=== PATIENT | male | born 1985 | race Caucasian/White ===

== ENCOUNTER 2021-06-02 01:18 | Emergency (ER) | payer SELFPAY ==
[2021-06-02 01:22] VITALS: BP 193/116; PULSE 61; RESP 19; TEMP 36.6; O2SAT 97; BMI 30.2
--- NOTE | 2021-06-02 01:43 | W.ED.DENTAL ---
HPI - Dental/Oral General: Chief complaint: Dental/Oral Stated complaint: tooth pain Time Seen by Provider: 06/02/21 01:22 History of Present Illness: HPI Narrative: Dental pain x2 weeks right rear r molar Complaint: tooth pain Teeth map: 1. Onset (ago): week(s) Duration: constant Severity: moderate Severity scale (1-10): 5 Relieving factors: nothing Context: history of dental caries and poor dental care Associated symptoms: Reports no associated symptoms; Denies fever(s) Review of Systems Const: Denies: fever(s), chills or body aches Eyes: Denies: change in vision or blurry vision ENMT: Reports: dental pain; Denies: throat pain or nasal congestion Card: Denies: chest pain or dyspnea on exertion Resp: Denies: dyspnea, productive cough or non-productive cough GI: Denies: abdominal pain, nausea or vomiting : Denies: difficulty urinating Musc: Denies: extremity pain Skin/Breast: Denies: rash Neuro: Denies: headache(s) Psych: Denies: anxiety or depression Florencio/Lymph: Denies: easy bruising Physical Exam Const: COMMON NORMALS: no acute distress GENERAL APPEARANCE: cooperative HENMT: TEETH & GINGIVA IMAGES: 1. Filling missing #32 tooth. Gum slightly swollen. Tender to the touch. No lymphadenopathy noted. Lymph: LYMPHATIC: no lymphadenopathy noted Skin: COMMON NORMALS: no rashes or lesions noted GENERAL SKIN EXAM: no rashes or lesions noted Course Vital Signs: Vital signs: Vital Signs Temperature 97.9 F 06/02/21 01:22 Pulse Rate 61 06/02/21 01:22 Respiratory Rate 19 H 06/02/21 01:22 Blood Pressure 193/116 06/02/21 01:22 Pulse Oximetry 97 06/02/21 01:22 MDM - Dental/Oral MDM Narrative: Medical decision making narrative: 1.5 mils move a cane was injected to the inferior alveolar nerve to provide anesthesia to the right lower molar Discharge Plan Discharge Patient Disposition: Home Clinical Impression: Toothache Condition: Stable Prescriptions: New clindamycin HCl 300 mg capsule 300 mg PO Q8H 7 Days Qty: 21 RF: 0 Celebrex 100 mg capsule 100 mg PO BID Qty: 20 RF: 0 Discharge Orders: Discharge ED (Routine); Ordered 06/02/21 Ordered By: Kaden Lake Discharge Diet: Usual diet Discharge Activity: Resume usual activity Patient Instructions: Dental Caries (ED) Activity Restrictions/Additional Instructions: Take medicine as directed follow-up with dentist as soon as possible. Coding Level of Care Code ED Delic[employer]essen Department Manager for Ivis Valentine
[2021-06-02] MEDS: clindamycin 150 mg Capsule 300 MG PO (02:05)
[2021-06-02] MEDS: CELEcoxib 200 mg Capsule 400 MG PO (02:06)
[2021-06-02 02:08] VITALS: BP 159/104; PULSE 65; RESP 20; O2SAT 96
== END 2021-06-02 02:00 | disposition home or self-care (01) ==
PROVIDERS: Emergency Provider Nurse Practitioner Family
DX: K08.89 Other specified disorders of teeth and supporting structures (principal)
CPT/HCPCS: 99282; J3490

== ENCOUNTER → 2022-07-16 16:50 | Outpatient (BNVA) | payer OTHER, SELFPAY | PROVIDERS: Visit Provider Nurse Practitioner Family | DX: R20.2 Paresthesia of skin (principal); Z13.6 Encounter for screening for cardiovascular disorders; R22.1 Localized swelling, mass and lump, neck | CPT/HCPCS: 80053; 80061; 82607; 83735; 84443; 85025 ==

== ENCOUNTER → 2022-10-15 16:33 | Outpatient (BNVA) | payer OTHER, SELFPAY | PROVIDERS: PCP Nurse Practitioner Family; Visit Provider Nurse Practitioner Family | DX: R22.1 Localized swelling, mass and lump, neck (principal); R79.89 Other specified abnormal findings of blood chemistry | CPT/HCPCS: 80076; 86705; 86706; 86709; 86803; 87340 ==

== ENCOUNTER → 2022-10-16 21:21 | Outpatient (BNVA) | payer OTHER, SELFPAY | PROVIDERS: PCP Nurse Practitioner Family; Visit Provider Nurse Practitioner Family | DX: R22.1 Localized swelling, mass and lump, neck (principal); R79.89 Other specified abnormal findings of blood chemistry; R20.2 Paresthesia of skin | CPT/HCPCS: 87522 ==

== ENCOUNTER 2022-11-07 11:08 | Outpatient (CLI) | payer OTHER, SELFPAY ==
--- NOTE | 2022-11-07 11:00 | US_ITS ---
WS: [id number] RIGHT UPPER QUADRANT ULTRASOUND HISTORY: Elevated LFTs. COMPARISON: None available. Liver: 17.4 cm in length. Liver is top normal size. Mild coarsened echotexture. No mass or bile duct dilatation. Portal Vein: Normal hepatopetal flow with monophasic waveform. Gallbladder: Normally distended gallbladder with no stones or wall thickening. CBD: 0.4 cm Pancreas: Normal size and echogenicity. Right kidney: 11.9 cm in length. Normal size and echogenicity. No hydronephrosis or mass. Aorta and IVC: Unremarkable abdominal aorta and IVC. No ascites. US/US liver [id number] IMPRESSION: 1. Normal gallbladder. 2. Liver is top normal size with very mild changes of hepatic steatosis.
== END 2022-11-07 11:09 | disposition home or self-care (01) ==
LOC: RAD 11:13
PROVIDERS: PCP Nurse Practitioner Family; Visit Provider Nurse Practitioner Family
DX: R79.89 Other specified abnormal findings of blood chemistry (principal); K76.0 Fatty (change of) liver, not elsewhere classified
CPT/HCPCS: 76705

== ENCOUNTER 2022-11-11 14:55 | Outpatient (CLI) | payer OTHER, SELFPAY ==
--- NOTE | 2022-11-11 15:00 | US_ITS ---
WS: [id number] INDICATION: Localized swelling mass lump of neck TECHNIQUE: Ultrasound soft tissue area of concern FINDINGS: Ultrasound soft tissue LEFT upper back area of interest. In the area of concern, there is a n ovoid relatively well-circumscribed mixed echogenicity lesion corresponding to the area of interest . This measures 4.9 x 1.6 x 4.1 cm and is compatible with incidental benign lipoma. No other abnormal ities. US/US soft tissue head neck [id number] IMPRESSION: Incidental benign lipoma in the area of concern.
== END 2022-11-11 14:56 | disposition home or self-care (01) ==
PROVIDERS: PCP Nurse Practitioner Family; Visit Provider Nurse Practitioner Family
DX: R22.1 Localized swelling, mass and lump, neck (principal); D17.1 Benign lipomatous neoplasm of skin and subcutaneous tissue of trunk
CPT/HCPCS: 76536

== ENCOUNTER 2022-12-04 10:44 | Emergency (ER) | payer OTHER, SELFPAY ==
[2022-12-04 10:52] VITALS: BP 145/88; PULSE 57; RESP 19; TEMP 36.6; O2SAT 98; BMI 30.7
--- NOTE | 2022-12-04 11:06 | CT_ITS ---
WS: [id number] CT THORACIC SPINE TECHNIQUE: Noncontrast CT of the thoracic spine with coronal and sagittal reformatted images. CLINICAL INFORMATION: fall from roof 8ft-mid back pain COMPARISON: None. DLP: 855.[address] scans at [facility] use at least one of these dose optimization techniques: automated e xposure control; mA and/or kV adjustment per patient size (includes targeted exams where dose is matc hed to clinical indication); or iterative reconstruction. FINDINGS: Scan performed [id number] due to pain Mild thoracic curve convex LEFT. Mild thoracic kyphosis. No acute compression fractures. A few Schmor l's nodes in the mid thoracic spine. Spinal canal is patent. No pneumothorax. No acute thoracic spine fractures. CT/CT thoracic spin wo con* [id number] IMPRESSION: No acute thoracic spine fractures.
--- NOTE | 2022-12-04 11:06 | CT_ITS ---
WS: [id number] CT CHEST TECHNIQUE: Noncontrast CT of the chest with coronal and sagittal reformatted images. CLINICAL INFORMATION: fall from roof- 8ft-left side rib pain COMPARISON: None. DLP: 855.[address] scans at [facility] use at least one of these dose optimization techniques: automated e xposure control; mA and/or kV adjustment per patient size (includes targeted exams where dose is matc hed to clinical indication); or iterative reconstruction. FINDINGS: Patient's scan RIGHT side down due to pain. Lungs are well aerated. No acute pulmonary infiltrates. No focal pneumonia or pleural fluid. No pneum othorax. No visualized rib fractures. Partially visualized normal noncontrast liver. Partially visualized normal noncontrast spleen. Normal GE junction. Adrenal glands are normal. Normal caliber thoracic aorta. No mediastinal or hilar lymph adenopathy. CT/CT chest wo con [id number] IMPRESSION: 1. No visualized rib fractures. 2. No pneumothorax. 3. No acute chest findings.
[2022-12-04 11:15] VITALS: RESP 16
[2022-12-04] MEDS: morphine 4 mg/mL SDV 1 mL IM (11:15)
--- NOTE | 2022-12-04 11:21 | ED_ITS ---
HPI - Fall General: Chief Complaint: Fall Stated Complaint: Fell off of roof around 8ft Time Seen by Provider: 12/04/22 11:00 History of Present Illness: Patient is a 37-year-old male comes to the ED with back and rib pain after fall. Patient states she was working on a roof was appr oximately 8 feet off the ground when his ladder slipped away from him. He was able to catch himself and hang onto the edge of the roof but his legs continued to swing forward causing him to fall backwards. He landed on top of the ladder that was on the ground. He says his mid back region hit the ladder. He now reports 10 out of 10 pain in his mid back and also left rib pain that radiates from his spine all the way around to the front of his chest. Pain worsens with certain movements or upon inspiration. Denies any head trauma, loss of consciousness or headache. Denies any other injuries. Denies any vision changes, numbness tingling 1 side of his body or face or weakness to 1 side of his body or face. Associated symptoms-after fall: Denies abdominal pain, chest pain, headache(s), hematuria or neck pain Review of Systems Const: Denies: fever(s), chills or fatigue Eyes: Denies: change in vision or eye discomfort ENMT: Denies: throat pain, odynophagia, nasal discharge or nasal congestion Card: Denies: chest pain, palpitations, edema, swelling of feet/ankles, dyspnea on exertion or orthopnea Resp: Denies: dyspnea, productive cough or non-productive cough GI: Denies: abdominal pain, nausea, vomiting, diarrhea, constipation or hematochezia : Denies: flank pain, difficulty urinating, dysuria or hematuria Musc: Reports: back pain and other (Left rib pain); Denies: neck pain or extremity swelling Skin/Breast: Denies: rash or new lesions Neuro: Denies: headache(s), numbness in extremities or weakness in extremities FOR[facility]LY [facility], [facility] ED PFSH: Medical History (Updated 12/05/22 @ 07:36 by MARU Garcia) No pertinent family history Surgical History (Updated 12/05/22 @ 07:36 by MARU Garcia) No pertinent past surgical history Social History Smoking and tobacco status: former smoker (will smoke a few cigarettes when drinking alcohol) Alcohol intake: current Alcohol intake frequency: 3 or more drinks per day Alcohol type: beer Household members: significant other Physical Exam Const: COMMON NORMALS: patient oriented x3 HENMT: COMMON NORMALS: normocephalic HEAD & SCALP: normocephalic MOUTH: Normal oral and palatal mucosa present THROAT: posterior oropharynx normal and uvula midline Neck/C-Spine: COMMON NORMALS: supple GENERAL: Yes normal visual inspection Chest: CHEST: Yes tenderness rib left mid-scapular line involving the 5th rib, involving the 6th rib and involving the 7th rib Resp: COMMON NORMALS: normal respiratory effort, No retractions, No use of accessory muscles and clear to auscultation bilaterally AUSCULTATION: clear to auscultation bilaterally Cardio: COMMON NORMALS: regular rate, regular rhythm, S1 normal heart sound present, S2 normal heart sound present, No gallops present (Cardio), No clicks present (Cardio), No murmurs present (Cardio) and Peripheral pulses 2+ throughout RATE: regular rate RHYTHM: regular rhythm HEART SOUNDS: S1 normal heart sound present and S2 normal heart sound present PERIPHERAL PULSES: Peripheral pulses 2+ throughout GI: COMMON NORMALS: Normal to inspection, nondistended, normoactive bowel sounds present, Soft to palpation, non-tender and no masses PALPATION: Yes Soft to palpation : COMMON NORMALS: Yes no CVA tenderness BLADDER/KIDNEY EXAM: Yes no CVA tenderness Back/Pelvis: COMMON NORMALS: no CVA tenderness THORACIC SPINE/UPPER BACK: Yes pain with ROM, Yes thoracic spinal tenderness T-spine tenderness location: T7, T8 and T9 and Yes paraspinal muscle tenderness Thoracic paraspinal muscle tenderness: bilateral Bilateral thoracic paraspinal muscle tenderness: T7, T8 and T9 Extremity: COMMON NORMALS: normal to inspection Neuro: COMMON NORMALS: patient oriented x3 GAIT: Yes Normal gait present Skin: GENERAL SKIN EXAM: dry skin Course Vital Signs: Vital signs: Vital Signs Temperature 97.9 F 12/04/22 10:52 Pulse Rate 62 12/04/22 13:03 Respiratory Rate 16 12/04/22 13:03 Blood Pressure 131/77 12/04/22 13:03 Pulse Oximetry 97 12/04/22 13:03 Oxygen Delivery Me thod 03/30/23 10:52 MDM - Fall Medical Decision Making Patient is a 37-year-old male comes to the ED with back and rib pain after fall. Patient states she was working on a roof was approximately 8 feet off the ground when his ladder slipped away from him. He was able to catch himself and hang onto the edge of the roof but his legs continued to swing forward causing him to fall backwards. He landed on top of the ladder that was on the ground. He says his mid back region hit the ladder. He now reports 10 out of 10 pain in his mid back and also left rib pain that radiates from his spine all the way around to the front of his chest. Pain worsens with certain movements or upon inspiration. Denies any head trauma, loss of consciousness or headache. Denies any other injuries. Denies any vision changes, numbness tingling 1 side of his body or face or weakness to 1 side of his body or face. Vitals are stable. Patient appears nontoxic and is in no acute distress. Is thoracic paraspinal muscle tenderness bilaterally around T7-T9 he also has T-spine tenderness through T7-T9. Left posterior rib tenderness as well. Rest of exam is benign. Chest CT shows no acute fractures or any other findings. Thoracic spine CT showed no acute fractures. Patient was diagnosed with back pain due to injury. He was given a dose of pain meds and muscle relaxer here in the ED. He was stable for discharge home and sent home with a prescription for some ibuprofen 800 mg and muscle relaxer. Told to follow-up with PCP in the next week for reevaluation. Return ED precautions given. Patient understood and agreed with plan. Lab Data Radiology Impressions Chest CT 12/04/22 11:06 IMPRESSION: 1. No visualized rib fractures. 2. No pneumothorax. 3. No acute chest findings. Thoracic Spine CT 12/04/22 11:06 IMPRESSION: No acute thoracic spine fractures. Discharge Plan Discharge Patient Disposition: Home Clinical Impression: Back pain due to injury Condition: Stable Prescriptions: New ibuprofen 800 mg tablet 800 mg PO Q8H PRN (Reason: pain) Qty: 30 0RF cyclobenzaprine 10 mg tablet 10 mg PO BID PRN (Reason: muscle spasm) Qty: 20 0RF No Action meloxicam 15 mg tablet 15 mg PO DAILY Qty: 30 2RF Discharge Orders: Discharge ED (Routine); Ordered 12/04/22 Ordered By: Donny Santos Referrals: Armida Eastman FNP [Primary Care Provider] - Discharge Diet: Regular Discharge Activity: Increase activity as tolerated Patient Instructions: Back Pain (ED) Activity Restrictions/Additional Instructions: Follow-up with medical provider as directed. The next 5 to 7 days for reevaluation. Rest and apply cold pack on sore area and back to help with symptoms. Stretch back muscles daily. Take medications as prescribed. Return to the ER or your medical provider if condition worsens. Please read and understand discharge instructions. Thank you for choosing [facility] for your healthcare needs today. Please realize this is an emergency room and that we are providing you with a medical screening exam and this may not be complete and all inclusive of all the testing and or work up that you may need to determine your ailment or severity of your illness. It is very important that you follow up as instructed or that you return to the Emergency Department should you have concerns or if your condition changes or worsens in any way. Coding Level of Care Code ED Time Study Technician for Ivis Valentine
[2022-12-04] MEDS: ketorolac 60 mg/2 mL INJ IM (12:47)
[2022-12-04] MEDS: orphenadrine 30 mg/mL Inj 2 mL 60 MG IM (12:47)
[2022-12-04 13:03] VITALS: BP 131/77; PULSE 62; RESP 16; O2SAT 97
== END 2022-12-04 13:04 | disposition home or self-care (01) ==
PROVIDERS: Emergency Provider Physician Assistant; PCP Nurse Practitioner Family
DX: S29.9XXA Unspecified injury of thorax, initial encounter (principal); Z87.891 Personal history of nicotine dependence; W13.2XXA Fall from, out of or through roof, initial encounter
CPT/HCPCS: 71250; 72128; 96372; 99284; J1885; J2270; J2360